=== PATIENT | male | born 1950 | race Caucasian/White ===

== ENCOUNTER 2019-06-19 10:36 | Day surgery (SDC) | payer BC, MEDICARE ==
--- NOTE | 2019-06-17 10:23 | HP ---
DATE OF SURGERY: 06/19/2019 HISTORY OF PRESENT ILLNESS: Melanoma left face wide excision, skin grafting. PAST MEDICAL HISTORY: ALLERGIES: NONE. MEDICATIONS: None. PAST SURGICAL HISTORY: Appendectomy. SOCIAL HISTORY: Negative. FAMILY HISTORY: Negative. REVIEW OF SYSTEMS: CVS: Negative. PULMONARY: Negative. PHYSICAL EXAMINATION: VITAL SIGNS: Normal. CHEST: Clear. COR: Regular. IMPRESSION: The patient has biopsy-proven melanoma of the left face. Excision is possible and skin grafting. PLAN: Wide excision, skin grafting.
[~2019-06-19 10:36] MED LIST: CEFAZOLIN 2 GM-D5W BAG** 2 GM/50 ML ML IV ONE; Lactated Ringers 1,000 ML IV ONE; Lactated Ringers 1,000 ML IV SCH; MINERAL OIL LIGHT 10 ML FOR SURGERY ONE; Sensorcaine 0.25% 10 ML ONE
[2019-06-19] MEDS ORDERED: CEFAZOLIN 2 GM-D5W BAG** 2 GM/50 ML ML IV ONE (10:52)
[2019-06-19] MEDS ORDERED: Versed 2 MG/2 ML Injection ONE ×2 (11:09→13:35)
[2019-06-19] MEDS ORDERED: Versed 2 MG/2 ML Injection IV ONE (11:10)
[2019-06-19 11:39] LABS: ANION GAP 9.1 MEQ/L (5-15); BLOOD UREA NITROGEN 14 mg/dL (9-20); CHLORIDE 108 mmol/L (98-107); Calcium 9.2 mg/dL (8.4-10.2); Carbon Dioxide 28 mmol/L (22-30); Creatinine 1 0.84 mg/dL (0.66-1.25); Glucose 105 mg/dL (74-106); Potassium 4.2 mmol/L (3.5-5.1); SODIUM 140 mmol/L (137-145)
[2019-06-19] MEDS ORDERED: DIPRIVAN 200 MG/20 ML IV ONE (13:35)
[2019-06-19] MEDS ORDERED: SUBLIMAZE 100 MCG/2 ML ONE ×2 (13:35→13:53)
[2019-06-19] MEDS ORDERED: Xylocaine-Mpf 2% 5 Ml Vial ONE (13:37)
[2019-06-19] MEDS ORDERED: Sensorcaine 0.25% 10 ML ONE (13:47)
[2019-06-19 16:11] VITALS: O2SAT 99
[2019-06-19 16:17] VITALS: BP 148/88; PULSE 78
--- NOTE | 2019-06-20 08:27 | OP ---
SURGERY DATE/TIME: 06/19/2019 2113 PREOPERATIVE DIAGNOSIS: Melanoma left shinto with the shave site measuring 1.2 x 1.0 cm. POSTOPERATIVE DIAGNOSIS: Melanoma left shinto with the shave site measuring 1.2 x 1.0 cm. PROCEDURES: 1) Wide excision with 2 cm margins, i.e. about 5 x 4.5 cm elliptical excision. 2) [place] of 6 sq/cm split thickness skin graft. 3) Application of 6 cm split thickness skin graft. SURGEON: Chidi Lyons M.D. ANESTHESIA: General. COMPLICATIONS: None. CONDITION: Stable. DESCRIPTION OF PROCEDURE: The patient has melanoma left face and has had a shave of the left shinto and is requiring wider, thicker resection 2 cm margins throughout. It was taken along with skin and subcutaneous tissue down to the muscular fascia. No dermatization occurred during the dissection which was meticulous. Hemostasis was meticulous. Skin was harvested from the left thigh 0.0125 inch. It was applied with simple interrupted suture #4-0 Chromic. Sterile ointment applied. Sterile dressing applied to the leg. The patient tolerated the procedure satisfactorily. Findings discussed with the family in the waiting room.
== END 2019-06-19 15:50 | disposition home or self-care (01) ==
LOC: SDC 10:36
PROVIDERS: ATTEND Surgery
DX: C43.39 Malignant melanoma of other parts of face (principal); Z79.899 Other long term (current) drug therapy
CPT/HCPCS: 36415; 80048; J0690; J2250; J2704; J3010; A9270-GY